=== PATIENT | female | born 1980 ===

== ENCOUNTER 2019-03-19 11:48 | Emergency (ER) | payer BC ==
[2019-03-19 15:07] VITALS: BP 114/66
--- NOTE | 2019-03-19 15:17 | UC ---
Throat Pain/Nasal Edgar HPI - HPI Summary HPI Summary: Pt presents with c/o or right ache and fullness that radiates to right maxillary sinus. Pt repoorts that she had URI like symptoms 1 week ago. - History of Current Complaint Chief Complaint: UCEar Stated Complaint: EAR PAIN Time Seen by Provider: 03/19/19 15:13 Hx Obtained From: Patient ?: No Onset/Duration: Gradual Onset, Lasting Days, Still Present, Worse Since - onset Severity: Moderate Pain Intensity: 5 Cough: None Associated Signs & Symptoms: Positive: Sinus Discomfort - Epiglottits Risk Factors Epiglottis Risk Factors: Negative - Allergies/Home Medications Allergies/Adverse Reactions: Allergies Allergy/AdvReac Type Severity Reaction Status Date / Time omeprazole [From [email or web address]] Allergy Hives Verified 03/19/19 15:07 Home Medications: Home Medications Pseudoephedrine HCL ER TAB* [Sudafed 12 Hour*] 240 mg PO ONCE PRN 03/19/19 [ History Confirmed 03/19/19] PMH/Surg Hx/FS Hx/Imm Hx Previously Healthy: Yes - Surgical History Surgical History: Yes Surgery Procedure, Year, and Place: c section x2 - Family History Known Family History: Positive: Cardiac Disease - Social History Occupation: Employed Full-time Lives: With Family Alcohol Use: Rare Substance Use Type: None Smoking Status (MU): Never Smoked Tobacco Have You Smoked in the Last Year: No Review of Systems All Other Systems Reviewed And Are Negative: Yes Constitutional: Positive: Negative Skin: Positive: Negative Eyes: Positive: Negative ENT: Positive: Ear Ache, Sinus Pain/Tenderness Respiratory: Positive: Negative Cardiovascular: Positive: Negative Gastrointestinal: Positive: Negative Genitourinary: Positive: Negative Motor: Positive: Negative Neurovascular: Positive: Negative Musculoskeletal: Positive: Negative Neurological: Positive: Negative Psychological: Positive: Negative Is Patient Immunocompromised?: No Physical Exam Triage Information Reviewed: Yes Appearance: Well-Appearing Vital Signs: Initial Vital Signs Temp 98.2 F 03/19/19 15:03 Pulse 73 03/19/19 15:03 Resp 18 03/19/19 15:03 BP 114/66 03/19/19 15:03 Pulse Ox 100 03/19/19 15:03 Vital Signs Reviewed: Yes Eye Exam: Normal ENT Exam: Other ENT: Positive: TM bulging - right Dental Exam: Normal Neck exam: Normal Respiratory Exam: Normal Cardiovascular Exam: Normal Musculoskeletal Exam: Normal Neurological Exam: Normal Psychological Exam: Normal Skin Exam: Normal Throat Pain/Nasal Course/Dx - Differential Dx/Diagnosis Differential Diagnosis/HQI/PQRI: Sinusitis, URI Provider Diagnosis: Acute effusion of right ear Discharge ED - Sign-Out/Discharge Documenting (check all that apply): Patient Departure All imaging exams completed and their final reports reviewed: No Studies - Discharge Plan Condition: Stable Disposition: HOME Prescriptions: guaiFENesin [Mucinex] 600 mg PO Q12H #14 tab.er.12h Oxymetazoline 0.05% NASAL SPR* [Afrin 0.05% NASAL SPRAY*] 1 spray NASAL Q12H 5 Days #1 btl Patient Education Materials: Earache (ED) Referrals: Jo-Ann Pinto MD [Primary Care Provider] - If Needed - Billing Disposition and Condition Condition: STABLE Disposition: Home
== END 2019-03-19 15:23 | disposition home or self-care (01) ==
LOC: UCCORT 11:48
DX: H93.91 Unspecified disorder of right ear (principal); Z88.8 Allergy status to other drugs, medicaments and biological substances
CPT/HCPCS: 99212; G0463